=== PATIENT | male | born 1980 | race Caucasian/White ===

== ENCOUNTER 2018-05-26 23:28 | Emergency (ER) | payer OTHER ==
--- NOTE | 2018-05-26 23:46 | NUR ---
CALLED PT NAME IN WR X 3. NO ONE RESPONDED, PER ADMITTING PT LEFT.
--- NOTE | 2018-05-27 00:09 | NUR ---
PT RETURNED, THEN LEFT PER ADMITTING FOR SECOND TIME.
== END 2018-05-27 00:10 | disposition left against medical advice (07) ==
LOC: ER 23:30
DX: Z53.21 Procedure and treatment not carried out due to patient leaving prior to being seen by health care provider (principal)